=== PATIENT | male | born 1990 | race American Indian/Alaskan Native ===

== ENCOUNTER 2021-04-10 11:11 | Emergency (ER) | payer SELFPAY ==
[2021-04-10 11:31] VITALS: BP 131/77
--- NOTE | 2021-04-10 11:51 | Emergency Department Report ---
Chief Complaint: Sore Throat Stated Complaint: SORE THROAT Time Seen by Provider: 04/10/21 11:31 - HPI History of Present Illness: 30-year-old male presents to the ER today requesting clearance to return to work. Patient states that he was seen here few days ago for sore throat. He states that he was told he had strep throat and he was prescribed antibiotics. He states that he has been taking antibiotics, and his throat is feeling better but his job will not allow him to come back to work until he gets clearance to go back. He states that he has been taking the antibiotics and only has 3 pills left. He has not had any fever or chills and he denies any new symptoms since he was seen. Reviewed patient's visit from when he was here on 04/06 and his rapid strep was negative. His throat culture was also negative. Patient was treated with supportive care with Decadron naproxen. Patient was not prescribed any antibiotics. - Exam Vital Signs: Vital Signs 04/10/21 11:30 Temperature 98.1 F Pulse Rate 58 L Respiratory 20 Rate Blood Pressure 131/77 [Right] O2 Sat by Pulse 100 Oximetry MSE screening note: Focused history and physical exam performed. Due to findings the following was ordered: ED Disposition for MSE Clinical Impression: Encounter for medical screening examination Disposition: 01 HOME / SELF CARE / HOMELESS Is pt being admited?: No Does the pt Need Aspirin: No Condition: Stable Instructions: Medical Screening Exam Additional Instructions: Finish the remainder of the medication that was prescribed to you on the .. It is okay that you return to work tomorrow. Follow-up with your PCP as needed. Return to the ER if anything changes or worsens. Referrals: ANN-MARIE FOSTER MD [Staff Physician] - 3-5 Days Forms: Work/School Release Form(ED) Time of Disposition: 11:54 ED Review of Systems ROS: Stated complaint: SORE THROAT Other details as noted in HPI Comment: All other systems reviewed and negative Constitutional: denies: chills, fever ENT: throat pain (improving ) Respiratory: denies: cough, shortness of breath, wheezing Cardiovascular: denies: chest pain, palpitations Endocrine: no symptoms reported Gastrointestinal: denies: abdominal pain, nausea, diarrhea, constipation, hematemesis, melena, hematochezia Genitourinary: denies: urgency, dysuria, frequency, hematuria, discharge, testicular pain, testicular mass Musculoskeletal: denies: back pain, joint swelling, arthralgia Skin: denies: rash, lesions, change in color, change in hair/nails, pruritus Neurological: denies: headache, weakness, paresthesias Psychiatric: denies: anxiety, depression Hematological/Lymphatic: denies: easy bleeding, easy bruising ED Physical Exam - General Limitations: No Limitations General appearance: alert, in no apparent distress - Head Head exam: Present: atraumatic, normocephalic, normal inspection - Eye Eye exam: Present: normal appearance, PERRL, EOMI Pupils: Present: normal accommodation - ENT ENT exam: Present: normal exam - Expanded ENT Exam Expanded Mouth exam: Present: normal external inspection Teeth exam: Present: normal inspection Throat exam: Positive: tonsillar erythema. Negative: tonsillomegaly, tonsillar exudate, R peritonsillar mass, L peritonsillar mass - Neck Neck exam: Present: full ROM. Absent: tenderness, meningismus, lymphadenopathy - Respiratory Respiratory exam: Present: normal lung sounds bilaterally - Cardiovascular Cardiovascular Exam: Present: regular rate, normal rhythm, normal heart sounds - Neurological Exam Neurological exam: Present: alert, oriented X3, CN II-XII intact, normal gait - Psychiatric Psychiatric exam: Present: normal affect, normal mood - Skin Skin exam: Present: intact
== END 2021-04-10 12:35 | disposition home or self-care (01) ==
LOC: ED 11:11
DX: J02.9 Acute pharyngitis, unspecified (principal); Z00.00 Encounter for general adult medical examination without abnormal findings
CPT/HCPCS: 99282

== ENCOUNTER 2021-04-29 12:32 | Emergency (ER) | payer SELFPAY ==
[2021-04-29 12:36] VITALS: BP 132/89
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
== END 2021-04-29 13:48 | disposition home or self-care (01) ==
LOC: ED 12:32
DX: L02.425 Furuncle of right lower limb (principal)
CPT/HCPCS: 99281